=== PATIENT | female | born 1980 | race Caucasian/White ===

== ENCOUNTER → 2016-09-29 | Outpatient (CLI) | payer OTHER ==
[~2016-09-29] MED LIST: LIDOCAINE 1% MDV 20ML VIAL As Ordered ONE
--- NOTE | 2016-09-29 16:11 | REP ---
Digital diagnostic unilateral right breast mammography with CAD: History: Marker clip placement views post needle biopsy. Comparison is made with mammography from [facility] dated September 21, 2016. Findings: CC and true MLO views of the right breast were obtained. A marker clip is in excellent position immediately adjacent to three or four remaining microcalcifications from the grouping, which was biopsied in the superomedial quadrant of the right breast. There is a small hematoma just superior to the biopsy site 2.3 cm in greatest diameter. No other change from prior mammography. Impression: 2.3 cm hematoma. Marker clip in good position. Signed by Cb Weathers MD 09/29/2016 04:33 P
--- NOTE | 2016-09-29 16:12 | REP ---
Specimen radiography right breast: History: Pleomorphic grouping of microcalcifications in the right breast on mammography from [facility] dated September 21, 2016. The patient is status post stereotactic needle biopsy. Findings: Specimen radiography demonstrates microcalcifications from the target grouping in three of the removed specimens. Impression: Specimen radiography demonstrates the target microcalcifications in the biopsy specimen. Signed by Cb Weathers MD 09/29/2016 04:33 P
--- NOTE | 2016-09-29 17:21 | REP ---
STEREOTACTIC RIGHT BREAST BIOPSY: The procedure was performed under the direct supervision of Dr. Weathers. The patient has a history of pleomorphic microcalcifications within the upper inner quadrant of the left breast seen on a previous mammogram from [facility] performed on 09/21/2016. The risks and benefits of the procedure were explained to the patient and informed consent was obtained. A cranial caudal approach was utilized. The calcifications were localized using stereotactic mammographic guidance. The skin was prepped and draped in a sterile fashion 1% Xylocaine was used as a local anesthetic. An 8-gauge suction assisted Mammotome needle was inserted and 6 core biopsy samples were obtained. Specimen radiograph demonstrates the presence of calcifications to be within the specimen. A marker clip was placed at the biopsy site. Approximately half way through sampling the patient did experience a syncopal episode. The patient recovered quite quickly, with the use of using ammonia and a cold cloth, however, did have some residual nausea postprocedure. Followup mammographic images demonstrate good marker clip placement. The patient tolerated the procedure well and there were no immediate complications. After the appropriate amount of monitored convalescence the patient was discharged from the department. Reviewed by DANIEL York 09/30/2016 04:17 PEdited and Signed by Cb Weathers MD 09/30/2016 04:51 P
== END | disposition home or self-care (01) ==
LOC: M RADPRO 11:39
PROVIDERS: ATTEND Physician Assistant
DX: D24.1 Benign neoplasm of right breast (principal); R55 Syncope and collapse; Z88.5 Allergy status to narcotic agent; Z79.899 Other long term (current) drug therapy

== ENCOUNTER → 2016-11-02 | Outpatient (REF) | payer OTHER ==
[2016-11-02 14:11] LABS: ALBUMIN 4.3 GM/DL (3.2-5.2); ALBUMIN/GLOBULIN RATIO 1.23 (1.00-1.93); ALKALINE PHOSPHATASE 115 U/L (45-117); ALT/SGPT 33 U/L (12-78); ANION GAP 6 MEQ/L (8-16); AST/SGOT 22 U/L (15-37); BILIRUBIN,TOTAL 0.3 MG/DL (0.2-1.0); BLOOD UREA NITROGEN 12 MG/DL (7-18); CALCIUM LEVEL 9.1 MG/DL (8.5-10.1); CARBON DIOXIDE LEVEL 26 MEQ/L (21-32); CHLORIDE LEVEL 105 MEQ/L (98-107); CREATININE FOR GFR 0.73 MG/DL (0.55-1.02); GLOMERULAR FILTRATION RATE > 60.0 (>60); GLUCOSE, FASTING 102 MG/DL (70-105); SODIUM LEVEL 137 MEQ/L (136-145); TOTAL PROTEIN 7.8 GM/DL (6.4-8.2)
[2016-11-02 14:14] LABS: FOLATE > 24.0 NG/ML; VITAMIN B12 LEVEL 763 PG/ML
[2016-11-04 11:25] LABS: ALBUMIN 4.56 GM/DL (3.29-5.55); ALBUMIN % 58.4 % (55.8-66.1); GAMMA GLOBULIN % 15.5 % (11.1-18.8)
== END ==
LOC: M LABNEURO 12:31
PROVIDERS: ATTEND Psychiatry & Neurology Neurology
DX: R25.1 Tremor, unspecified (principal); R42 Dizziness and giddiness; F80.1 Expressive language disorder

== ENCOUNTER → 2022-06-25 | Outpatient (REF) | payer OTHER | LOC: M SFHCRHEU 09:12 | PROVIDERS: ATTEND Internal Medicine Rheumatology | DX: Z53.9 Procedure and treatment not carried out, unspecified reason (principal) ==

== ENCOUNTER 2023-01-04 17:04 | Emergency (ER) | payer OTHER ==
[~2023-01-04] VITALS: Ht 152.4 cm; Wt 70.0 kg
[~2023-01-04 17:04] MED LIST changes: +CYCL-707; +DULO1CAP6; +GABA-282; +JARD1TAB; -LIDOCAINE 1% MDV 20ML VIAL As Ordered ONE; +METF500T13
[2023-01-04 17:14] VITALS: TEMP 98.2
[2023-01-04 17:19] VITALS: O2SAT 98
[2023-01-04] MEDS ORDERED: ACET-645 (17:23)
[2023-01-04] MEDS ORDERED: METRCRM (17:23)
[2023-01-04] MEDS ORDERED: IBUP80TA (17:23)
[2023-01-04 17:30] VITALS: BP 173/82
== END 2023-01-04 19:28 | disposition home or self-care (01) ==
LOC: EDBD 17:04 → M ED 17:04
DX: S97.02XA Crushing injury of left ankle, initial encounter (principal); S47.1XXA Crushing injury of right shoulder and upper arm, initial encounter; S38.1XXA Crushing injury of abdomen, lower back, and pelvis, initial encounter; E11.9 Type 2 diabetes mellitus without complications; Z88.5 Allergy status to narcotic agent; Z88.6 Allergy status to analgesic agent; Z79.4 Long term (current) use of insulin; Z79.891 Long term (current) use of opiate analgesic; Z79.899 Other long term (current) drug therapy; Y99.0 Civilian activity done for income or pay

== ENCOUNTER 2024-01-10 06:03 | Day surgery (SDC) | payer OTHER ==
[~2024-01-10] VITALS: Ht 152.4 cm; Wt 71.6 kg
[~2024-01-10 06:03] MED LIST changes: +ACET-645; +ATOR1TAB21 PO; +IBUP80TA; +METRCRM; +SEMA0.257
[2024-01-10] MEDS ORDERED: propofoL 200 MG/20 ML VIAL As Ordered ONE (06:54)
[2024-01-10] MEDS ORDERED: LR 1,000 ML IV SCH (07:05)
[2024-01-10 07:07] LABS: BLOOD UREA NITROGEN 15 MG/DL (9-23); CARBON DIOXIDE LEVEL 30 MMOL/L (20-31); CHLORIDE LEVEL 107 MMOL/L (98-107); CREATININE FOR GFR 0.81 MG/DL (0.55-1.30); GLOMERULAR FILTRATION RATE > 60.0 (>58); GLUCOSE, FASTING 103 MG/DL (60-100); POTASSIUM SERUM 4.4 MMOL/L (3.5-5.1); SODIUM LEVEL 139 MMOL/L (136-145)
[2024-01-10] MEDS ORDERED: fentaNYL 100 MCG/2 ML INJECTION As Ordered ONE (07:17)
[2024-01-10] MEDS ORDERED: ROCURONIUM BROMIDE 50MG/5ML VIAL As Ordered ONE (07:18)
[2024-01-10] MEDS ORDERED: LIDOCAINE 2% 100MG/5ML SDV (FOR ANES.) As Ordered ONE (07:18)
[2024-01-10] MEDS ORDERED: ONDANSETRON 4MG 2ML VIAL As Ordered ONE (07:19)
[2024-01-10] MEDS ORDERED: ceFAZolin SOD 2 GM in IV 1 EA IV ONE (07:35)
[2024-01-10] MEDS: ceFAZolin 2 GM/D5W 50 ML IV BAG As Ordered ONE (07:52)
[2024-01-10] MEDS: TRANEXAMIC ACID 100 MG/ML 10ML VIAL As Ordered ONE (07:57)
[2024-01-10] MEDS ORDERED: TRANEXAMIC ACID 100 MG/ML 10ML VIAL IV ONE (08:00)
[2024-01-10] MEDS ORDERED: MIDAZOLAM INJ 2MG/2ML VIAL As Ordered ONE (08:14)
[2024-01-10] MEDS ORDERED: SUGAMMADEX SODIUM 500 MG/5 ML VIAL (BRIDION) As Ordered ONE (09:12)
[2024-01-10] MEDS: EPINEPHrine 1MG/ML INJ 30ML MD-VIAL As Ordered ONE (09:32)
[2024-01-10] MEDS: LIDOCAINE 1% MDV 20ML VIAL As Ordered ONE (09:36)
[2024-01-10] MEDS ORDERED: ONDANSETRON 4MG 2ML VIAL IV PRN (09:45)
[2024-01-10] MEDS ORDERED: fentaNYL 100 MCG/2 ML INJECTION IV PRN (09:45)
[2024-01-10] MEDS ORDERED: METOCLOPRAMIDE INJ 10MG/2ML VIAL IV PRN (09:45)
[2024-01-10] MEDS ORDERED: diphenhydrAMINE 50MG/ML VIAL IV PRN (09:45)
[2024-01-10] MEDS ORDERED: MEPERIDINE 25 MG/ML 1ML VIAL IV PRN (09:45)
[2024-01-10] MEDS ORDERED: TRAM50TA2 PO (10:02)
[2024-01-10] MEDS: LIDOCAINE 1% SDV 5ML VIAL PN ONE (10:57)
[2024-01-10] MEDS: ROPIvacaine 0.5% 30ML VIAL PN ONE (10:57)
[2024-01-10] MEDS: EPINEPHrine INJ 1 MG/ML 1ML AMP PN ONE (10:57)
[2024-01-10] MEDS: dexAMETHasone 10MG/1ML VIAL PRES.FREE PN ONE (10:57)
[2024-01-10] MEDS: MIDAZOLAM INJ 2MG/2ML VIAL IV PRN (10:57)
[2024-01-10] MEDS: fentaNYL 100 MCG/2 ML INJECTION IV PRN (10:57)
[2024-01-10] MEDS ORDERED: ACETAMINOPHEN 1000MG 100ML IV BAG As Ordered ONE (11:45)
[2024-01-10 12:52] VITALS: BP 133/71; TEMP 96.4; O2SAT 95
== END 2024-01-10 13:05 | disposition home or self-care (01) ==
LOC: M SDC 06:03
PROVIDERS: ATTEND Orthopaedic Surgery
DX: M25.511 Pain in right shoulder (principal); S43.431D Superior glenoid labrum lesion of right shoulder, subsequent encounter; E11.9 Type 2 diabetes mellitus without complications; E78.5 Hyperlipidemia, unspecified; F41.9 Anxiety disorder, unspecified; M79.7 Fibromyalgia; Z79.899 Other long term (current) drug therapy; Z95.0 Presence of cardiac pacemaker
CPT/HCPCS: 29823; 29828; 36415; 80048; 81025; C1713; J0131; J0171; J0665; J0690; J1100; J2250; J2405; J3010

== ENCOUNTER → 2024-02-03 | Outpatient (CLI) | payer OTHER ==
[~2024-02-03] MED LIST changes: +GABA-1172; -GABA-282; +TRAM50TA2 PO
== END ==
LOC: M SOG 07:58
PROVIDERS: ATTEND Orthopaedic Surgery
DX: S43.431D Superior glenoid labrum lesion of right shoulder, subsequent encounter (principal); M25.511 Pain in right shoulder

== ENCOUNTER → 2025-01-30 | Outpatient (REF) | LOC: M PLAIMG 12:29 | PROVIDERS: ATTEND Internal Medicine | DX: R52 Pain, unspecified (principal) ==